=== PATIENT | female | born 1940 | race Caucasian/White ===

== ENCOUNTER 2017-11-11 10:30 | Outpatient (CLI) | payer OTHER, MEDICARE ==
--- NOTE | 2017-11-11 11:36 | RAD ---
LEFT KNEE FOUR VIEWS: Indication: Knee pain. FINDINGS: There is a left knee prosthesis without hardware complication identified. No significant joint capsul ar distention or acute osseous abnormality. IMPRESSION: No acute osseous abnormality of the left knee. POS: [facility]
--- NOTE | 2017-11-11 11:44 | RAD ---
RIGHT KNEE 4 VIEWS: INDICATION: Knee pain. FINDINGS: There is moderate osteoarthritis of the right knee with preferential involvement of the medial compar tment. No significant joint capsular distention. There is no acute fracture or dislocation. IMPRESSION: 1. Moderate osteoarthritis of the right knee. 2. No acute fracture. POS: [facility]
== END 2017-11-11 10:31 | disposition home or self-care (01) ==
LOC: RAD 10:30
PROVIDERS: ATTEND Internal Medicine
DX: M25.561 Pain in right knee (principal); M25.562 Pain in left knee; M17.11 Unilateral primary osteoarthritis, right knee

== ENCOUNTER 2018-05-31 09:10 | Outpatient (CLI) | payer OTHER, MEDICARE | END 2018-05-31 09:11 | disposition home or self-care (01) | LOC: BICMAMMO 09:10 | PROVIDERS: ATTEND Obstetrics & Gynecology | DX: Z12.31 Encounter for screening mammogram for malignant neoplasm of breast (principal); Z80.3 Family history of malignant neoplasm of breast | CPT/HCPCS: 77063; 77067 ==